=== PATIENT | male | born 1990 | race Caucasian/White ===

== ENCOUNTER 2019-05-08 11:22 | Emergency (ER) | payer SELFPAY ==
[2019-05-08 11:29] VITALS: BP 149/99
[2019-05-08] MEDS ORDERED: FAMOTIDINE 20 MG TABLET PO ONE (11:48)
[2019-05-08] MEDS ORDERED: DEXAMETHASONE SOD PHOS INJ 10 MG/1 ML VIAL IM ONE (11:48)
[2019-05-08] MEDS ORDERED: DIPHENHYDRAMINE HCL 50 MG CAPSULE PO ONE (11:48)
--- NOTE | 2019-05-08 11:53 | ER Document Report ---
HPI - HPI Time Seen by Provider: 05/08/19 11:45 Pain Level: 5 Notes: Patient is a 29-year-old male with no significant past medical history who presents complaining of a wasp sting to his right ear and right lower jaw area about 45 minutes ago. Patient put an ice pack on it, but did not take any other medicine. Patient states that he has not noticed any significant swelling, but does have soreness to his ear. Patient states that he has never had an anaphylactic reaction to insect stings or bites. Denies drug allergies. He has not had any drooling, wheezing, or hoarseness. No swelling of the lip/tongue/throat. Denies any headache, fever, neck pain, changes in vision/speech/mentation/hearing, URI, sore throat, chest pain, palpitations, syncope, cough, shortness of breath, dyspnea, abdominal pain, nausea/vomiting/diarrhea, urinary retention, dysuria, hematuria, numbness/tingling. - ROS Systems Reviewed and Negative: Yes All other systems reviewed and negative Past Medical History - Social History Smoking Status: Current Every Day Smoker Family History: Reviewed & Not Pertinent Vertical Provider Document - CONSTITUTIONAL Agree With Documented VS: Yes Notes: PHYSICAL EXAMINATION: GENERAL: Well-appearing, well-nourished and in no acute distress. A&Ox4. Answers questions appropriately. Moves comfortably w/o notable distress HEAD: Atraumatic, normocephalic. EYES: Pupils equal round and reactive to light, extraocular movements intact, sclera anicteric, conjunctiva are normal. ENT: EAC clear b/l. TM's intact b/l without erythema, fluid, or perforation. Nares patent and without discharge. oropharynx no erythema without exudates. No tonsilar hypertrophy without erythema or exudate. No palatine shift. Uvula midline. No tongue protrusion. No drooling, hoarseness, or airway compromise. Moist mucous membranes. No sinus tenderness. No evidence of angioedema to lips/tongue/throat. NECK: Normal range of motion, supple without lymphadenopathy. No rigidity/meningismus. LUNGS: Breath sounds clear to auscultation bilaterally and equal. No wheezes rales or rhonchi. No retractions HEART: Regular rate and rhythm without murmurs, rubs, gallops. ABDOMEN: Soft, nontender, nondistended abdomen. No guarding, no rebound. Normal bowel sounds present. No CVA tenderness bilaterally. NEUROLOGICAL: Normal speech, normal gait. PSYCH: Normal mood, normal affect. SKIN: + mild swelling rt outer ear and mild tenderness to palp w/o evidence of abscess or stinger remaining. + small macular erythemic area rt lower jaw in the area of reported sting. No purulence or other evidence of bacterial infection. Course - Re-evaluation Re-evalutation: 05/08/19 11:51 Patient is an afebrile, well-hydrated, 29-year-old male who presents with insect sting to the right outer ear and right lower jaw area. Vitals are acceptable without significant tachycardia, tachypnea, or hypoxia. No significant hypotension. PE is otherwise unremarkable. Patient is nontoxic-appearing and is tolerating p.o. without difficulty. Patient given Decadron, Pepcid, and Benadryl. No further work-up warranted. Low suspicion for any meningitis, sepsis, peritonsillar/pharyngeal abscess, respiratory compromise, Cortez's, angioedema, abscess, or other emergent systemic condition at this time. Patient is aware this condition can change from initial presentation and he needs to monitor symptoms closely. Conservative measures otherwise for symptoms. Recheck with your PCM in 2-3 days. Return to the ED with any worsening/concerning symptoms otherwise as reviewed in discharge. Patient is in agreement. - Vital Signs Vital signs: Temp Pulse Resp BP Pulse Ox 97.6 F 109 H 18 149/99 H 98 05/08/19 11:28 05/08/19 11:28 05/08/19 11:28 05/08/19 11:28 05/08/19 11:28 Discharge - Discharge Clinical Impression: Insect sting Qualifiers: Encounter type: initial encounter Injury intent: accidental or unintentional Qualified Code(s): T63.481A - Toxic effect of venom of other arthropod, accidental (unintentional), initial encounter Condition: Stable Disposition: HOME, SELF-CARE Instructions: Insect Sting ([facility]) Additional Instructions: Keep the skin clean Wash with soap and water Tylenol/ibuprofen if needed Benadryl and Pepcid as reviewed Triple antibiotic ointment daily for any break in the skin Take medication as directed Monitor for any worsening symptoms Recheck with your PCM in 2-3 days Return to the ED with any worsening symptoms and/or development of fever, headache, chest pain, palpitations, syncope, shortness of breath, trouble breathing, abdominal pain, n/v/d, abscess, purulent discharge, red streaks, worsening swelling, or other worsening symptoms that are concerning to you. Forms: Elevated Blood Pressure, Smoking Cessation Education Referrals: VIDAL GURROLA, [ACTIVE STAFF] - Follow up as needed
== END 2019-05-08 12:02 | disposition home or self-care (01) ==
LOC: ER 11:22
DX: T63.461A Toxic effect of venom of wasps, accidental (unintentional), initial encounter (principal); F17.200 Nicotine dependence, unspecified, uncomplicated
CPT/HCPCS: 99282; 96372; J1100